=== PATIENT | male | born 1995 | race Caucasian/White ===

== ENCOUNTER 2016-09-29 16:43 | Emergency (ER) | payer OTHER ==
[~2016-09-29] VITALS: Ht 185.4 cm; Wt 98.7 kg
[2016-09-29 17:30] LABS: HEMATOCRIT 48.2 % (38.0-50.0); MCH 30.7 PG (29.0-34.0); MCHC 35.3 G/DL (30.0-36.0); MCV 87.2 FL (86-99); PLATELET COUNT 317 K/uL (156-360); RBC DIS.WIDTH-SD 38.1 % (39-53); RED BLOOD COUNT 5.53 M/uL (4.00-5.50); WHITE BLOOD COUNT 6.2 K/uL (4.1-10.2)
[2016-09-29 17:38] LABS: CHLORIDE 105 mEq/L (99-109); POTASSIUM 4.1 mEq/L (3.7-5.4); SODIUM 141 mEq/L (136-147)
[2016-09-29 17:40] LABS: GLUCOSE 77 mg/dL (70-99)
[2016-09-29 17:42] LABS: ANION GAP 10 MEQ/L (2-14)
[2016-09-29 17:44] LABS: GFR ESTIMATE (CALCULATED) > 59 mL/min/
[2016-09-29 17:45] LABS: UREA NITROGEN (BUN) 14 mg/dL (9-23)
[2016-09-29 17:51] LABS: TROP-I INTERPRETATION NEGATIVE; TROPONIN-I < 0.01 ng/mL (0.0-0.30)
[2016-09-29] MEDS ORDERED: MOTRIN800 MG PO (19:14)
[2016-09-29] MEDS ORDERED: FLEXERIL10 MG PO (19:14)
[2016-09-29 19:29] VITALS: BP 137/78
== END 2016-09-29 19:29 | disposition home or self-care (01) ==
LOC: EME 16:43
DX: R07.89 Other chest pain (principal)
CPT/HCPCS: 71020; 80048; 84484; 85027; 93005; 99281; 99284